=== PATIENT | male | born 2000 | race Asian ===

== ENCOUNTER 2019-12-16 22:06 | Emergency (ER) | payer OTHER ==
[2019-12-16] MEDS ORDERED: FAMOTIDINE INJ/PF 20 MG/2 ML SDV IV ONE (22:58)
[2019-12-16] MEDS ORDERED: EPINEPHRINE INJ/PF 1 MG/1 ML AMPULE IM ONE (22:58)
[2019-12-16] MEDS ORDERED: METHYLPREDNISOLONE INJ 125 MG/2 ML SDV IV ONE (22:58)
--- NOTE | 2019-12-16 23:04 | ER Document Report ---
ED General - General Chief Complaint: Allergic Reaction Stated Complaint: POSSIBLE ALLERGIC REACTION Time Seen by Provider: 12/16/19 22:51 - HPI Notes: Chief complaint: Allergic reaction Previously healthy 19-year-old male [employer] had eaten some yellowfin tuna for the first time about 90 minutes ago when he developed some facial swelling primarily around the left eye and lips with some itching of his throat and sensation of tightness in his throat with some shortness of breath. EMS was called. They administered 0.3 of epi IM. Patient had taken 75 mg of Benadryl orally prior to their arrival. They also gave him a single nebulizer treatment with albuterol. Since arrival here he reports his symptoms are generally better although he has some persistent "itching" in his throat as well as some persistent swelling of left upper and lower eyelid. Patient denies any known prior history of food allergies or significant allergic reactions. He takes no regular medications. He has no known allergies to me dications. - Related Data Allergies/Adverse Reactions: fish derived Allergy (Verified 12/16/19 23:10) Past Medical History - General Information source: Patient - Social History Smoking Status: Current Every Day Smoker Chew tobacco use (# tins/day): No Frequency of alcohol use: Occasional Drug Abuse: None Family History: Reviewed & Not Pertinent Patient has suicidal ideation: No Patient has homicidal ideation: No Review of Systems - Review of Systems Notes: Constitutional: Negative for fever. HENT: Negative for sore throat. Eyes: Negative for visual changes. Cardiovascular: Negative for chest pain. Respiratory: As per HPI. Gastrointestinal: Negative for abdominal pain, vomiting or diarrhea. Genitourinary: Negative for dysuria. Musculoskeletal: Negative for back pain. Skin: Negative for rash. Neurological: Negative for headaches, weakness or numbness. 10 point ROS negative except as marked above and in HPI. Physical Exam - Vital signs Vitals: Resp Pulse Ox 22 H 97 12/16/19 22:09 12/16/19 22:09 - Notes Notes: GENERAL: Well-developed well-nourished appearing in no acute distress. SKIN: Good turgor no rashes. HEAD: Normocephalic atraumatic. EYES: Moderate swelling left upper and lower eyelid. PERRLA. EOMI. Conjunctivae and sclerae clear. EARS: CANALS AND TMS CLEAR. NOSE: CLEAR. MOUTH: Minimal edema of lower lip. No swelling of tongue or uvula. Moist mucosa. Good dentition. No stridor or edema. No drooling. Throat: Clear. NECK: Supple. No masses or thyromegaly. No adenopathy. Carotids 2+ without bruits. No JVD. BACK: Symmetrical without tenderness. CHEST: Respirations unlabored. Breath sounds clear and symmetrical. HEART: Regular rhythm. No murmur gallop or rub. ABDOMEN: Soft nontender without masses, organomegaly or rebound. Bowel sounds normally active. No bruits. GENITALIA: Deferred. EXTREMITIES: No edema. No calf tenderness. Cap refill less than 1.5 seconds. Dorsalis pedis and posterior tibial pulses 3+ and symmetrical. NEUROLOGICAL: GCS 15. Alert and oriented x3. Fluent speech. Cranial nerves II through XII intact. Sensorimotor and cerebellar normal. Normal tone. PSYCHIATRIC: Appropriate affect. Course - Re-evaluation Re-evalutation: 12/16/19 23:03 We will continue to observe patient on monitor at this time. IV Solu-Medrol and IV Pepcid ordered. Second dose of IM epi at this time. 12/17/19 00:18 Symptoms have totally resolved. Patient is oxygenating normally. Previously noted periorbital edema has resolved. He appears stable for outpatient management. - Vital Signs Vital signs: Temp Pulse Resp BP Pulse Ox 98.4 F 22 H 131/72 H 96 12/16/19 23:00 12/16/19 23:01 12/16/19 23:01 12/16/19 23:01 Discharge - Discharge Clinical Impression: Anaphylaxis Qualifiers: Encounter type: initial encounter Qualified Code(s): T78.2XXA - Anaphylactic shock, unspecified, initial encounter Condition: Stable Disposition: HOME, SELF-CARE Additional Instructions: Angioedema Angioedema is an allergic swelling of the soft tissues of the body. The lips and mouth are most commonly involved. Medicication allergy is a common cause, especially HENNY inhibitor medicine (used for blood pressure control). Food, even something you've eaten frequently, can cause angioedema. In many cases it's not obvious what caused the swelling. Acute treatment may include adrenalin and antihistamines. If the cause is known, you must avoid this food or medicine in the future. If angioedema affects your air passages, it can be life-threatening. Return at once if you develop shortness of breath, faintness, severe pain, inability to swallow, or if swelling worsens.swelling worsens. Anaphylaxis Kit Use your anaphylaxis kit for life-threatening allergic reactions. It can be carried with you. After using the kit, you should get immediate medical attention. The kit contains a syringe with adrenaline for injection, and an antihistamine pill. Expected side effects of adrenaline are rapid heartbeat, shakiness, weakness, and occasionally headache or nausea. These symptoms develop within minutes of the injection, and usually wear off within 30 minutes. The antihistamine causes drowsiness. Review the instructions in the kit carefully. Be sure you know how to use it properly. Check the expiration date, and replace an unused kit before it expires. If you haven't used an anaphylaxis kit before, please return here when you've filled the prescription. We'll show you how to use it. Return here as needed for new or worsening symptoms: Increase facial swelling, shortness of breath or wheezing Overall worsening Prescriptions: Hydroxyzine HCl [Atarax 10 mg Tablet] 10 mg PO TID PRN #30 tablet PRN Reason: Prednisone [Deltasone 20 mg Tablet] 2 tab PO DAILY 5 Days tablet Epinephrine [Epipen 2-Ole] 0.3 mg IM ONCE PRN #1 packet PRN Reason: Famotidine [Pepcid 20 mg Tablet] 20 mg PO BID #12 tablet
[2019-12-17 00:31] VITALS: BP 130/73
== END 2019-12-17 00:40 | disposition home or self-care (01) ==
LOC: EDBD 22:06 → ER 22:06
DX: T78.2XXA Anaphylactic shock, unspecified, initial encounter (principal); R09.89 Other specified symptoms and signs involving the circulatory and respiratory systems; L29.9 Pruritus, unspecified; X58.XXXA Exposure to other specified factors, initial encounter; F17.200 Nicotine dependence, unspecified, uncomplicated
CPT/HCPCS: 99285; 96372; 96374; 96375; J0171; J2930; S0028